=== PATIENT | female | born 1985 | race Caucasian/White ===

== ENCOUNTER 2017-06-13 07:59 | Emergency (ER) | payer SELFPAY ==
[~2017-06-13] VITALS: Ht 157.5 cm; Wt 49.9 kg
[~2017-06-13 07:59] MED LIST: EMVERM100 MG PO
[2017-06-13 08:10] VITALS: BP 125/86
[2017-06-13] MEDS ORDERED: Norco 5mg/325mg tab ORAL ONE (08:30)
--- NOTE | 2017-06-13 08:31 | Emergency Room Report ---
History of Present Illness General Chief Complaint: Pain Source: Patient Present Illness HPI Patient presents emergency department with multiple complaints. She complains of chronic abdominal pain intermittent crampy in nature lasting for 2 years. She also complains of occasional rashes on her body and eruptions she believes might be due to parasite or some other infection. She's had seen infectious disease who has given her permethrin cream in the past. However she states that she's not getting better. She'll complains of right-sided facial and jaw pain. Difficulty swallowing. Her boyfriend lives with her has rashes as well. They have cleaned her apartment including getting rid of all furniture and applying flee break as well as covers her mattresses the symptoms do not seem to be improving. Patient is very frustrated and in tears. No other complaints are noted.No other modifying factors. No other associated signs and symptoms. No other complaints were noted. Allergies: Uncoded Allergies: SULFA (Allergy, Intermediate, 02/17/16) Pt states she gets SOB. Patient History Past Medical History: none Pertinent Family History: none Social History: Denies: smoking, alcohol use, drug use Last Menstrual Period: 06/06/17 Reviewed Nursing Documentation: PMH: Agreed, PSxH: Agreed Nursing Documentation-PMH Past Medical History: No Stated History Review of Systems All Other Systems: negative except mentioned in HPI Physical Exam Vital Signs Date Time Temp Pulse Resp B/P (MAP) Pulse Ox O2 Delivery O2 Flow Rate FiO2 06/13/17 08:05 97.9 93 18 125/86 100 Room Air Sp02 EP Interpretation: reviewed, normal General Appearance: alert, mild distress Head: atraumatic Eyes: bilateral eye normal inspection ENT: normal ENT inspection, hearing grossly normal, normal voice Neck: normal inspection, full range of motion, supple, no bony tend Respiratory: normal inspection, lungs clear, normal breath sounds, no respiratory distress, no retraction, no wheezing Cardiovascular #1: regular rate, rhythm, no edema Gastrointestinal: normal inspection, normal bowel sounds, non tender, soft, no guarding, no hernia Genitourinary: no CVA tenderness Musculoskeletal: normal inspection, back normal, normal range of motion Neurologic: normal inspection, alert, responsive, speech normal Psychiatric: judgement/insight normal, depressed affect, anxious Skin: other - skin eruptions, scabs Medical Decision Making Diagnostic Impression: Primary Impression: Abdominal pain Additional Impressions: Parasite infection UTI (urinary tract infection) Rash ER Course Patient presents emergency department today complaining of chronic abdominal pain associate with intermittent episodes a rash in her body. She has been treated with antiparasitic drugs in the past. But states the symptoms are not improving. And came here for further evaluation. Differential considerations include parasitic body infection, abscess, folliculitis, urinary tract infection , chronic abdominal pain just name a few. Given the severity of the patient's presentation I felt this is a highly complex patient. This patient required extensive workup. Patient's laboratory workup shows evidence of UTI. Therefore patient was given a perfusion for antibiotics. Patient also complained of a rash I felt it was reasonable to try parasitic antibiotic as patient has been areas were strongylodies were endemic. Patient was given antibiotic prescription. Recommend outpatient followup with infectious disease and primary care physician.Patient is advised to follow up with primary doctor in 2-3 days and return the emergency room for any worsening symptoms and as needed. Labs Test 06/13/17 08:55 White Blood Count 6.6 K/UL (4.8-10.8) Red Blood Count 4.35 M/UL (4.20-5.40) Hemoglobin 13.4 G/DL (12.0-16.0) Hematocrit 39.0 % (37.0-47.0) Mean Corpuscular Volume 90 FL (80-99) Mean Corpuscular Hemoglobin 30.9 PG (27.0-31.0) Mean Corpuscular Hemoglobin Concent 34.5 G/DL (32.0-36.0) Red Cell Distribution Width 10.5 % (11.6-14.8) Platelet Count 244 K/UL (150-450) Mean Platelet Volume 6.8 FL (6.5-10.1) Neutrophils (%) (Auto) 59.4 % (45.0-75.0) Lymphocytes (%) (Auto) 34.1 % (20.0-45.0) Monocytes (%) (Auto) 4.9 % (1.0-10.0) Eosinophils (%) (Auto) 0.9 % (0.0-3.0) Basophils (%) (Auto) 0.7 % (0.0-2.0) Urine Color Yellow Urine Appearance Clear Urine pH 5 (4.5-8.0) Urine Specific [place] 1.025 (1.005-1.035) Urine Protein 1+ (NEGATIVE) Urine Glucose (UA) Negative (NEGATIVE) Urine Ketones Negative (NEGATIVE) Urine Occult Blood 1+ (NEGATIVE) Urine Nitrite Negative (NEGATIVE) Urine Bilirubin Negative (NEGATIVE) Urine Urobilinogen Normal MG/DL (0.0-1.0) Urine Leukocyte Esterase 2+ (NEGATIVE) Urine RBC 0-2 /HPF (0 - 2) Urine WBC 5-10 /HPF (0 - 2) Urine Squamous Epithelial Cells Few /LPF (NONE/OCC) Urine Bacteria Few /HPF (NONE) Urine HCG, Qualitative Negative Sodium Level 141 MMOL/L (136-145) Potassium Level 3.8 MMOL/L (3.5-5.1) Chloride Level 105 MMOL/L (98-107) Carbon Dioxide Level 28 MMOL/L (21-32) Anion Gap 8 mmol/L (5-15) Blood Urea Nitrogen 13 mg/dL (7-18) Creatinine 0.8 MG/DL (0.55-1.30) Estimat Glomerular Filtration Rate > 60 mL/min (>60) Glucose Level 98 MG/DL (74-106) Calcium Level 9.4 MG/DL (8.5-10.1) Total Bilirubin 0.5 MG/DL (0.2-1.0) Aspartate Amino Transf (AST/SGOT) 18 U/L (15-37) Alanine Aminotransferase (ALT/SGPT) 25 U/L (12-78) Alkaline Phosphatase 73 U/L (46-116) Total Protein 7.5 G/DL (6.4-8.2) Albumin 4.1 G/DL (3.4-5.0) Globulin 3.4 g/dL Albumin/Globulin Ratio 1.2 (1.0-2.7) Lipase 130 U/L (73-393) Last Vital Signs Date Time Temp Pulse Resp B/P (MAP) Pulse Ox O2 Delivery O2 Flow Rate FiO2 06/13/17 08:10 97.9 76 18 125/86 100 Room Air Status: improved Disposition: HOME, SELF-CARE Condition: Stable Scripts Ivermectin (Ivermectin) 3 Mg Tablet 12 MG PO ONCE A WEEK for 28 Days, TAB Prov: RODRIGUEZ DOYLE M.D. 06/13/17 Cephalexin* (KEFLEX*) 500 Mg Capsule 500 MG ORAL Q6H, #28 CAP 0 Refills Prov: RODRIGUEZ DOYLE M.D. 06/13/17 Hydrocodone Bit/Acetaminophen 5-325* (NORCO 5-325*) 1 Each Tablet 1 TAB ORAL Q6H Y for For Pain, #20 TAB 0 Refills Prov: RODRIGUEZ DOYLE M.D. 06/13/17 RODRIGUEZ DOYLE M.D. Jun 13, 2017 08:31
[2017-06-13 09:05] LABS: APPEARANCE,URINE CLEAR; KETONES,URINE NEGATIVE (NEGATIVE); LEUKOCYTE ESTERASE ,URINE 2+ (NEGATIVE); NITRITE,URINE NEGATIVE (NEGATIVE); PH,URINE 5 (4.5-8.0); PROTEIN,URINE 1+ (NEGATIVE); UROBILINOGEN,URINE NORMAL MG/DL (0.0-1.0)
[2017-06-13 09:07] LABS: BASOPHILS % (AUTO) 0.7 % (0.0-2.0); EOSINOPHILS % (AUTO) 0.9 % (0.0-3.0); LYMPHOCYTES % (AUTO) 34.1 % (20.0-45.0); MEAN CORPUSCULAR HEMOGLOBIN 30.9 PG (27.0-31.0); MEAN CORPUSCULAR HGB CONC 34.5 G/DL (32.0-36.0); MEAN CORPUSCULAR VOLUME 90 FL (80-99); MEAN PLATELET VOLUME 6.8 FL (6.5-10.1); MONOCYTES % (AUTO) 4.9 % (1.0-10.0); NEUTROPHILS % (AUTO) 59.4 % (45.0-75.0); PLATELET COUNT 244 K/UL (150-450); RED BLOOD COUNT 4.35 M/UL (4.20-5.40); RED CELL DISTRIBUTION WIDTH 10.5 % (11.6-14.8); WHITE BLOOD COUNT 6.6 K/UL (4.8-10.8)
[2017-06-13 09:19] LABS: ALANINE AMINOTRANSFERASE 25 U/L (12-78); ALBUMIN/GLOBULIN RATIO 1.2 (1.0-2.7); ANION GAP 8 mmol/L (5-15); ASPARTATE AMINO TRANSFERASE 18 U/L (15-37); CALCIUM 9.4 MG/DL (8.5-10.1); CARBON DIOXIDE 28 MMOL/L (21-32); CHLORIDE 105 MMOL/L (98-107); CREATININE 0.8 MG/DL (0.55-1.30); GLOMERULAR FILTRATION RATE > 60 mL/min (>60); LIPASE 130 U/L (73-393); POTASSIUM 3.8 MMOL/L (3.5-5.1); SODIUM 141 MMOL/L (136-145); TOTAL PROTEIN 7.5 G/DL (6.4-8.2)
[2017-06-13 09:26] LABS: BACTERIA,URINE FEW /HPF; RBC,URINE 0-2 /HPF (0 - 2); SQUAMOUS EPITHELIAL CELL,UR FEW /LPF (NONE/OCC)
[2017-06-13] MEDS ORDERED: IVERMECTIN3 MG PO (09:48)
[2017-06-13] MEDS ORDERED: KEFLEX500 MG ORAL (09:48)
[2017-06-13] MEDS ORDERED: NORCO 5-325 TA1 EACH ORAL (09:48)
[2017-06-13 10:07] VITALS: BP 125/86
== END 2017-06-13 10:19 | disposition home or self-care (01) ==
LOC: EMR 08:28
DX: R10.9 Unspecified abdominal pain (principal); N39.0 Urinary tract infection, site not specified; R21 Rash and other nonspecific skin eruption; B89 Unspecified parasitic disease; Z88.2 Allergy status to sulfonamides
CPT/HCPCS: 36415; 80053; 81003; 81025; 83690; 85025; 96374; 99284; J2405

== ENCOUNTER 2017-07-06 04:23 | Emergency (ER) | payer SELFPAY ==
[~2017-07-06] VITALS: Ht 157.5 cm; Wt 49.9 kg
[~2017-07-06 04:23] MED LIST changes: +IVERMECTIN3 MG PO; +KEFLEX500 MG ORAL; +NORCO 5-325 TA1 EACH ORAL
[2017-07-06 04:50] VITALS: BP 126/78
--- NOTE | 2017-07-06 04:51 | Emergency Room Report ---
History of Present Illness General Chief Complaint: Skin Rash/Abscess Source: Patient Present Illness HPI A 32-year-old white female who complaining of parasitic infection. She's been treated for it in the past. She was here last month and was treated for anti- parasitic medication. She remained today complaining of maggot combative her skin. No fever chills but no nausea vomiting. Denies any drug use. Allergies: Coded Allergies: SULFA (SULFONAMIDE ANTIBIOTICS) (Verified Allergy, Unknown, 07/06/17) Patient History Past Medical History: see triage record, old chart reviewed Past Surgical History: none Pertinent Family History: none Social History: Denies: smoking, drug use Last Menstrual Period: now Now: No Immunizations: other Reviewed Nursing Documentation: PMH: Agreed, PSxH: Agreed Nursing Documentation-PMH Past Medical History: No Stated History Review of Systems Eye: Denies: eye pain, blurred vision ENT: Denies: ear pain, nose congestion, throat swelling Respiratory: Denies: cough, shortness of breath Cardiovascular: Denies: chest pain, palpitations Gastrointestinal: Denies: abdominal pain, diarrhea, nausea, vomiting Musculoskeletal: Denies: back pain, joint pain Skin: Reports: rash Neurological: Denies: headache, numbness Endocrine: Denies: increased thirst, increased urine Hematologic/Lymphatic: Denies: easy bruising All Other Systems: negative except mentioned in HPI Physical Exam Vital Signs Date Time Temp Pulse Resp B/P (MAP) Pulse Ox O2 Delivery O2 Flow Rate FiO2 07/06/17 04:35 98.2 83 16 126/78 100 Room Air vitals normal Sp02 EP Interpretation: reviewed, normal General Appearance: well appearing, no apparent distress, alert Head: normocephalic, atraumatic Eyes: bilateral eye PERRL, bilateral eye EOMI ENT: hearing grossly normal, normal pharynx Neck: full range of motion, supple, no meningismus Respiratory: chest non-tender, lungs clear, normal breath sounds Cardiovascular #1: regular rate, rhythm, no murmur Gastrointestinal: normal bowel sounds, non tender, no mass, no organomegaly, no bruit, non-distended Musculoskeletal: back normal, gait/station normal, normal range of motion Psychiatric: mood/affect normal Skin: warm/dry, other - Patient with multiple area of irritation from skin picking. There are no maggots or any evidence of infection. Medical Decision Making Diagnostic Impression: Primary Impression: Delusions of parasitosis ER Course Patient presents with medication and delusional parasitosis. Denies any drug use. No evidence of parasites or maggots coming out of the wound. She keeps pointing to area on her body is coming out. I do not see any of those. We'll discharge home. Last Vital Signs Date Time Temp Pulse Resp B/P (MAP) Pulse Ox O2 Delivery O2 Flow Rate FiO2 07/06/17 04:35 98.2 83 16 126/78 100 Room Air Status: unchanged Disposition: HOME, SELF-CARE Condition: Stable Scripts Mupirocin* (MUPIROCIN*) 22 Gm Oint...g. 1 APPLIC TOPIC THREE TIMES A DAY, #22 GM Prov: JESSE ROCHA M.D. 07/06/17 Additional Instructions: Followup with your DrDella in 7 days. Return if symptom worsen. JESSE ROCHA M.D. Jul 06, 2017 04:51
[2017-07-06] MEDS ORDERED: MUPIROCIN22 GM TOPIC (05:42)
[2017-07-06 05:50] VITALS: BP 126/78
== END 2017-07-06 05:47 | disposition home or self-care (01) ==
LOC: EMR 04:52
DX: F22 Delusional disorders (principal); Z88.2 Allergy status to sulfonamides
CPT/HCPCS: 80307; 99283